=== PATIENT | female | born 1990 | race Hispanic/Latino ===

== ENCOUNTER 2023-10-11 09:25 | Outpatient (CLI) | payer OTHER ==
[2023-10-11] MEDS ORDERED: Iopamidol 300 61% 100 ML VIAL FS ONE (12:44)
== END 2023-10-11 09:26 | disposition home or self-care (01) ==
LOC: CSHCT 09:25
PROVIDERS: ATTEND Nurse Practitioner Family
DX: R10.31 Right lower quadrant pain (principal); N83.9 Noninflammatory disorder of ovary, fallopian tube and broad ligament, unspecified
CPT/HCPCS: 74177; Q9967